=== PATIENT | male | born 1945 | race Caucasian/White ===

== ENCOUNTER 2021-02-19 12:07 | Day surgery (SDC) | payer MEDICARE, BC ==
[~2021-02-19] VITALS: Ht 172.7 cm; Wt 90.9 kg
[2021-02-19 12:44] LABS: CALC OSMOLALITY 284 mosm/kg (275-300); CALCIUM 9.3 mg/dL (8.5-10.1); CARBON DIOXIDE 29.3 mmol/L (21.0-32.0); CHLORIDE - SERUM 107 mmol/L (98-107); GLUCOSE 114 mg/dL (74-106); POTASSIUM - SERUM 4.1 mmol/L (3.5-5.1); SODIUM 143 mmol/L (136-145); UREA NITROGEN 11 mg/dL (7-18); eGFR NON AFRICAN AMERICAN 78 mL/min (90-120)
[2021-02-19 12:54] LABS: BASOPHILS 0.6 % (0-2); EOSINOPHILS 4.2 % (0-7); HEMOGLOBIN 11.7 g/dL (13.5-17.5); IMMATURE GRANULOCYTES 0.2 % (0-5); LYMPHOCYTE ABS# 1.58 10x3/uL (1.32-3.57); LYMPHOCYTES 31.2 % (15-50); MCHC 31.6 g/dL (31.0-37.0); MCV 97.9 fL (80.0-100.0); MEAN PLATELET VOLUME 9.7 fL (7.4-10.4); MONOCYTES 15.8 % (2-11); NEUTROPHIL ABS# 2.43 10x3/uL (1.78-5.38); RBC 3.78 10x6/uL (4.20-6.10); WBC 5.1 10x3/uL (4.8-10.8)
[2021-02-19 13:00] LABS: PLATELET COUNT 149 10x3/uL (130-400)
[2021-02-19] MEDS ORDERED: VASOTEC5 MG (13:31)
[2021-02-19] MEDS ORDERED: FER-IN-SOL DROP50 ML (13:31)
[2021-02-19] MEDS ORDERED: FUROSEMIDE20 MG (13:31)
[2021-02-19] MEDS ORDERED: ASPIRIN81 MG (13:32)
[2021-02-19] MEDS ORDERED: ASCORBIC ACID500 MG (13:32)
[2021-02-19] MEDS ORDERED: OMEPRAZOLE20 M1 (13:33)
[2021-02-19 13:36] VITALS: Ht 172.7 cm; Wt 90.9 kg
--- NOTE | 2021-02-19 15:43 | NUR ---
DISCHARGE INSTRUCTIONS GIVEN TO PATIENT AND , VERABLIZED UNDERSTANDING. PIV DC'D, CATHETER INTACT. PATIENT GETTING DRESSED WITH 'S ASSISTANCE. 1620 DR MARRUFO HAS SPOKEN WITH PT AND SPOUSE. DC'D PT VIA WC BY THIS NURSE TO POV WITH DRIVING. AND PATIENT HAD ALL BELONGINGS AND DC PACKET.
--- NOTE | 2021-02-20 14:41 | OP ---
PATIENT NAME: RADHA CROWLEY MEDICAL RECORD: [id number] :49 LOCATION:[facility] ADMISSION DATE: SURGEON: ODETTE MARRUFO MD DATE OF OPERATION: 02/19/2021 PROCEDURE: Colonoscopy. PREOPERATIVE DIAGNOSIS: History of polyps. Medication: Propofol per anesthesia. DESCRIPTION OF PROCEDURE: Colonoscopy was performed. The colonoscope was inserted through the rectum and advanced to the cecum, identified by the ileocecal valve and appendiceal orifice. The quality of the prep was good to fair. There were a few sigmoid diverticula visualized. The remainder of the exam was normal. The patient tolerated the procedure well. There were no immediate complications. FINAL DIAGNOSIS: Few sigmoid diverticula. Remainder of exam normal. PLAN: Advance diet. Return to GI office. Fiber supplements. TRANSINT:[id number] Voice Confirmation ID: [id number] DOCUMENT ID: [id number] ODETTE MARRUFO MD at 1441 CC: [id number] DICTATION DATE: 02/19/21 1509 UNIT AIDE: 02/19/21 1714 [facility] 02/19/21 [id number] [place] [address]
== END 2021-02-19 16:20 | disposition home or self-care (01) ==
LOC: D.OPS 12:07
PROVIDERS: ATTEND Internal Medicine Gastroenterology
DX: Z86.010 Personal history of colon polyps (principal); K57.30 Diverticulosis of large intestine without perforation or abscess without bleeding; Z12.11 Encounter for screening for malignant neoplasm of colon

== ENCOUNTER → 2021-03-13 08:08 | Outpatient (CLI) | payer MEDICARE, BC ==
[2021-02-19 13:36] VITALS: BMI 30.4
[~2021-03-13 08:08] MED LIST: ASCORBIC ACID500 MG; ASPIRIN81 MG; FER-IN-SOL DROP50 ML; FUROSEMIDE20 MG; OMEPRAZOLE20 M1; VASOTEC5 MG
== END | disposition home or self-care (01) ==
LOC: D.HCCARDIO 03-09 11:30
PROVIDERS: ATTEND Internal Medicine Cardiovascular Disease
DX: R06.02 Shortness of breath (principal)

== ENCOUNTER 2021-04-02 10:43 | Day surgery (SDC) | payer MEDICARE, BC ==
[~2021-04-02] VITALS: Ht 172.7 cm; Wt 94.5 kg
--- NOTE | ~2021-04-02 | HP ---
PATIENT: RADHA CROWLEY MEDICAL RECORD: [id number] ACCOUNT: [id number] LOCATION:[facility] : 47 ADMISSION DATE: 04/02/21 PCP: AFUA GARCIA DO HISTORY AND PHYSICAL EXAMINATION HISTORY OF PRESENT ILLNESS: A 75-year-old gentleman with no known history of coronary artery disease, presented with chest tightness, pressure with exertion in the office, typically found to have significant coronary disease via noninvasive studies. He is referred to manager labor delivery for further evaluation. PAST MEDICAL HISTORY: Includes; 1. History of hypertension. 2. Hyperlipidemia. ALLERGIES: PENICILLIN. PHYSICAL EXAMINATION: GENERAL: Pleasant, no acute distress. Appears stated age. HEENT: Normocephalic, atraumatic. NECK: No JVD or bruit. CARDIOVASCULAR: Regular. LUNGS: Suarez clear. ABDOMEN: Soft and nontender. EXTREMITIES: Pulses 2+ with no edema. IMPRESSION: Anginal symptomatology class 3 at this point with significant noninvasive findings. PLAN: Angiography, intervention based on the above. TRANSINT:[id number] Voice Confirmation ID: [id number] DOCUMENT ID: [id number] NIRU THOMPSON MD CC: [id number] DICTATION DATE: 04/02/21 1407 CAN PILER: 04/02/21 1508 [facility] [address] [place] [address]
--- NOTE | ~2021-04-02 | OP ---
PATIENT NAME: RADHA CROWLEY MEDICAL RECORD: [id number] :49 LOCATION:[facility] ADMISSION DATE: SURGEON: NIRU THOMPSON MD DATE OF OPERATION: 04/02/2021 PROCEDURE: Left heart catheterization, selective coronary angiography plus IFR wire to the LAD plus stenting to the LAD, right femoral artery approach. CATHETERS: A 5-Nigerien sheath, 5/4 left and right Axel, 5/4 pig. The procedure was well tolerated. The patient was returned to the [place]. Sheath removed. ExoSeal device was placed. FINDINGS: Left ventriculography in 30-degree MCCAIN view: Normal wall motion, normal systolic function. CORONARY ANATOMY: Left main: Left main is free of disease. LAD: Has about 80% stenosis in its mid portion. This confirmed via IFR wire, less than 0.9. CIRCUMFLEX: Free of disease. Right coronary artery: Free of disease. IMPRESSION: Significant stenosis of the LAD via IFR and angiographically. PLAN: Intervention momentarily. DESCRIPTION: A 5-Nigerien sheath was exchanged for a 6-Nigerien sheath. A XB LAD guiding catheter provided guide catheter support followed by the indwelling optimal wire. Stent deployed was a 3.5 x 14 up to 14 atmospheres. Final angiography shows excellent resolution of 80% stenosis. No significant residual. EDILBERTO flow was 3 throughout the procedure. Heparin and Integrilin were used during the case. Plavix loaded in the lab. Sheath closed with ExoSeal device. TRANSINT:[id number] Voice Confirmation ID: [id number] DOCUMENT ID: [id number] NIRU THOMPSON MD CC: [id number] DICTATION DATE: 04/02/21 1503 [employer] BUS DRIVER: 04/02/21 1756 [facility] [address] [place] [id number]
--- NOTE | ~2021-04-02 | HEMODYNAMI ---
PATIENT:RADHA CROWLEY MEDICAL RECORD: [id number] : 49 LOCATION:[facility] ADMISSION DATE: 04/02/21 Generatedon:114:55 Patient name: RADHA CROWLEY Patient #: [id number] SSN: [id number] : 1945 Date of study: 04/02/2021 Page: Of Hemodynamic Procedure Report Patient Data Patient Demographics Procedure consent was obtained First Name: RADHA Gender: Male Last Name: KEO : 1945 Middle Initial: A Age: 75 year(s) Patient #: [id number] Race: SSN: [id number] Additional ID: [id number] Contact details Address: [address] [place] [address] State: [place] City: [place] Zip code: [address] Past Medical History Performed procedures and imaging results Date Procedure Procedure Results Comments 03/13/2021 Stress testing Positive->Intermediate with SPECT MPI risk Allergies Allergen Reaction Date Comments Reported Other allergy 04/02/2021 PCN Other allergy 04/02/2021 PCN Admission Admission Data Admission Date: 04/02/2021 Admission Time: 10:43 Admit Source: Other Lab Results Lab Result Date: 04/02/2021 Lab Result Time: 0:00 Biochemistry Name Units Result Min Max BUN mg/dl 15 --(--*-)-- 7 18 Creatinine mg/dl 1.1 --(--*-)-- 0.6 1.3 eGFR ml/min 70.17958 *-(----)-- 90 120 NONAFRICAN CBC Name Units Result Min Max Hematocrit % 37.6 *-(----)-- 42 54 Hemoglobin g/dl 12.9 -*(----)-- 13.5 17.5 Procedure Procedure Types Cath Procedure Diagnostic Procedure C LH w/Coronaries FFR/IVUS FFR Initial Sedation Charges Moderate Sedation 25-39 minutes PCI Procedure Coronary Stent Coronary Stent Initial Hemochron ACT Test Procedure Description Procedure Date Procedure Date: 04/02/2021 Procedure Start Time: 14:26 Procedure End Time: 14:51 Procedure Staff Name Function Kin Reyna MD Performing Physician Cindi Hernández RN Nurse Lai Estrada RN Nurse Kamini Hong RT Scrub Arielle Klein RT Monitor Procedure Data Cath Procedure Fluoroscopy Diagnostic fluoroscopy Total fluoroscopy Time: 5.5 time: 5.5 min min Diagnostic fluoroscopy Total fluoroscopy dose: 563 dose: 563 mGy mGy Contrast Material Contrast Material Type Amount (ml) Isovue 300 143 Entry Location Entry Primary Successful Side Size Upsize Upsize Entry Closure Succes sful Closure Location (Fr) 1 (Fr) 2 (Fr) Remarks Device Remarks Femoral Right 5 Fr 6 Fr Exoseal artery Short Estimated blood loss: 5 ml Diagnostic catheters Device Type Used For End Catheter Placement MULTIPACK JL 4.0 5Fr Left Coronary catheter Angiography MULTIPACK 3DRC 5Fr Right Coronary catheter Angiography MULTIPACK Pigtail 5 Fr LV Angiography catheter MULTIPACK JL 4.0 5Fr Pressure catheter Measurement Procedure Complications No complications Procedure Medications Medication Administration Route Dosage Oxygen etCO2 Nasal cannula 2 l/min Lidocaine 2% added to field 20 Heparin Flush Bag added to field 2 bags (1000units/500ml NS) 0.9% NaCl I.V. 100 ml/hr Versed I.V. 1 mg Fentanyl I.V. 50 mcg Versed I.V. 1 mg Fentanyl I.V. 50 mcg Heparin Bolus I.V. 2000 units Heparin Bolus I.V. 3000 units Integrilin (Bolus I.V. 8.5 ml 2mg/ml) Plavix P.O. 600 mg Hemodynamics Rest HGB: 12.9 (g/dl) Heart Rate: 69 (bpm) Pressure Samples Time Site Value (mmHg) Purpose Heart Use Rate(bpm) 14:32 LV 69/-6,0 Snapshot 80 14:32 AO 110/59(82) Pullback 83 14:32 LV 11/5,10 Pullback 83 Gradients Valve Time Site 1 Site 2 Mean SEP/DFP Peak To Heart Use (mmHg) (sec/min) Peak Rate (mmHg) (bpm) Aortic 14:32 LV AO 0 21 0 83 11/5,10 110/59(82) Calculations Valve P-P Mean Valve Index Valve Source Name Gradient Area Flow (cm2) Aortic 0 0 0 0 Snapshots Pre Cath Intra NCS Post Cath Vital Signs Time Heart Resp SPO2 etCO2 NIBP Rhythm Pain Sedation Rate (ipm) (%) (mmHg) (mmHg) Status Level (bpm) 14:02:40 61 14 100 28.7 114/65(86) NSR 0 (11) 10(A) , No pain 14:06:58 64 12 100 17.4 115/64(86) NSR 0 (11) 10(A) , No pain 14:11:16 68 11 100 31 120/60(91) NSR 0 (11) 10(A) , No pain 14:15:32 68 10 100 24.9 116/57(88) NSR 0 (11) 10(A) , No pain 14:19:48 69 12 100 14.4 116/60(80) NSR 0 (11) 9(A) , No pain 14:24:04 69 11 100 12.8 109/56(87) NSR 0 (11) 9(A) , No pain 14:28:18 70 10 100 15.9 112/58(87) NSR 0 (11) 9(A) , No pain 14:32:34 79 10 100 12.1 110/62(88) NSR 0 (11) 9(A) , No pain 14:36:52 68 11 100 5.3 115/58(88) NSR 0 (11) 9(A) , No pain 14:41:11 86 11 100 5.3 116/61(93) NSR 0 (11) 9(A) , No pain 14:45:31 82 10 100 26.5 106/57(87) NSR 0 (11) 10(A) , No pain 14:49:43 81 11 100 31.8 120/68(85) NSR 0 (11) 10(A) , No pain Medications Time Medication Route Dose Verified Delivered Reason Notes Effectiveness by by 14:03:09 Oxygen etCO2 2 Kin Puente used for Nasal l/min 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 100 Kin Puente Per physician ml/hr St Andrea Hernández RN, MD 14:10:02 Versed I.V. 1 mg Kin Puente for sedation St Andrea Hernández RN, MD 14:10:08 Fentanyl I.V. 50 Kin Rosaie for sedation mcg St Andrea Hernández RN, MD 14:21:00 Versed I.V. 1 mg Kin Puente for sedation St Andrea Hernández RN, MD 14:21:04 Fentanyl I.V. 50 Kin Puente for sedation mcg St Andrea Hernández RN, MD 14:39:58 Heparin Bolus I.V. 2000 Kin Puente for verif ied units St Andrea Hernández RN anticoagulation with dr MD echavarria 14:43:22 Heparin Bolus I.V. 3000 Kin Puente for verif ied units St Andrea Hernández RN anticoagulation with dr MD echavarria 14:43:34 Integrilin I.V. 8.5 Kin Rosaie for Waste d (Bolus 2mg/ml) ml St Andrea Hernández RN antiplatelet 1.5 ml MD therapy of vial 14:51:15 Plavix P.O. 600 Kin Puente for mg St Andrea Hernández RN antiplatelet therapy Procedure Log Time Note 12:52:37 Informed consent obtained and on chart 12:52:55 Diagnostic Cath Status : Elective 12:53:31 Admit Source: Other 12:53:36 ACC Patient presents with Stable Angina CCS Anginal Class 2--Slight limitation of ordinary activity. 12:53:41 Procedure Status Elective Heart Cath (OP). 12:53:43 Time tracking: Regular hours (M-F 7:00 - 5:00) 12:53:48 Plan of Care:Hemodynamics will remain stable., Cardiac rhythm will remain stable., Comfort level will be maintained., Respiratory function will remain adequate., Patient/ family verbilizes understanding of procedure., Procedure tolerated without complication., Recovers from procedure without complications.. 12:53:59 Family in waiting room. 12:54:00 Patient NPO since Midnight. 12:55:11 Lab Result : Hemoglobin 12.9 g/dl 12:55:11 Lab Result : eGFR NONAFRICAN 70.04320 ml/min 12:55:11 Lab Result : BUN 15 mg/dl 12:55:11 Lab Result : Creatinine 1.1 mg/dl 12:55:11 Lab Result : Hematocrit 37.6 % 12:55:34 Lab results completed and on chart. 12:55:51 Stress Test: yes; abnormal INFERIOR 12:55:53 Alarms reviewed by R. N. 12:55:54 Sharps counted by scrub and verified by R.N. 13:01:55 Risk of Mortality: 0.1 13:01:57 Risk of blood transfusion: 0.3 13:02:01 Risk of SOPHIE: 1.2 13:43:21 Cindi Hernández RN sent for patient. Start room use. 13:49:00 Patient allergic to Other allergyPCN 13:53:44 Patient received from Pre/Post Procedure Room to CCL 1 Alert and oriented. Tansferred to table in Supine position. 13:53:45 Warm blankets applied, and carolina hugger turned on for patient comfort. 13:53:46 Correct patient and procedure confirmed by team. 13:53:46 ECG and BP/O2 sat monitors applied to patient. 13:53:47 Full Disclosure recording started 13:53:48 Pre-procedure instructions explained to patient. 13:53:49 Pre-op teaching completed and patient verbalized understanding. 13:53:58 Patient allergic to Other allergyPCN 13:54:05 Is the patient allergic to Iodine/contrast media? No. 13:54:06 Was the patient premedicated? Yes 13:54:12 Is patient on blood thinner?No 13:54:13 Patient diabetic? No. 13:57:29 Vital chart was started 13:57:30 Baseline sample Acquired. 14:03:09 Oxygen 2 l/min etCO2 Nasal cannula was administered by Cindi Hernández RN; used for procedure; Verbal order read back and verified. 14:03:17 Lidocaine 2% 20ml vial added to field was administered by Kin Reyna MD; for local anesthetic; Verbal order read back and verified. 14:03:23 Heparin Flush Bag (1000units/500ml NS) 2 bags added to field was administered by Kin Reyna MD; used for procedure; Verbal order read back and verified. 14:03:33 0.9% NaCl 100 ml/hr I.V. was administered by Cindi Hernández RN; Per physician; Verbal order read back and verified. 14:05:19 Baseline sample Acquired. 14:05:44 Rhythm: sinus rhythm 14:05:49 Previous problem with sedation/anesthesia? No ? 14:05:51 Snore? No 14:05:51 Sleep apnea? No 14:05:52 Deviated septum? No 14:05:53 Opens mouth fully? Yes 14:05:53 Sticks out tongue? Yes 14:05:57 Airway obstruction? No ? 14:05:59 Dentures? No ? 14:06:04 Pre procedure: right dorsailis pedis pulse 2+ Normal; easily identifiable; not easily obliterated 14:06:07 Pre procedure: left dorsailis pedis pulse 2+ Normal; easily identifiable; not easily obliterated 14:06:16 Patient pain scale 0/10 ?. 14:06:25 IV patent on arrival in left forearm with 0.9% NaCl at [facility]. 14:06:32 Physician arrived 14:06:33 --------ALL STOP TIME OUT------ 14:06:33 Final Timeout: patient, procedure, and site verified with staff and physician. All members of the team are in agreement. 14:06:39 Right groin site verified by team. 14:06:43 Fire Safety Assessment: A--An alcohol-based skin anteseptic being used preoperatively., C--Open oxygen or nitrous oxide is being used., D--An ESU, laser, or fiber-optic light is being used. 14:06:47 Physical assessment completed. ASA score P 2 - A patient with mild systemic disease as per Kin Reyna MD. 14:06:51 Sedation plan: IV Moderate Sedation Medication:Versed, Fentanyl 14:07:20 2) 60-89 Mildly reduced kidney function, and other findings (as for stage 1) point to kidney disease. 14:08:04 Maximum allowable contrast dose (3.7 X eGFR X 0.75)194 ml. 14:08:38 Use device set Femoral Dx 14:08:39 ACIST Syringe (97500) opened to sterile field. 14:08:39 Bag Decanter (2002) opened to sterile field. 14:08:40 Medline Cath Pack ([id number]) opened to sterile field. 14:08:41 ACIST Hand Control (76423) opened to sterile field. 14:08:41 ACIST Manifold (94810) opened to sterile field. 14:08:42 DIAGNOSTIC Multipack 5Fr catheter set ([id number]) opened to sterile field. 14:08:42 Tegaderm 4 x 4 (1626W) opened to sterile field. 14:08:44 SHEATH 5FR [place] (WOI061) opened to sterile field. 14:08:44 EMERALD Guide Wire (679-346) opened to sterile field. 14:10:02 Versed 1 mg I.V. was administered by Cindi Hernández RN; for sedation; Verbal order read back and verified. 14:10:08 Fentanyl 50 mcg I.V. was administered by Cindi Hernnádez RN; for sedation; Verbal order read back and verified. 14:21:00 Versed 1 mg I.V. was administered by Cindi Hernández RN; for sedation; Verbal order read back and verified. 14:21:04 Fentanyl 50 mcg I.V. was administered by Cindi Hernández RN; for sedation; Verbal order read back and verified. 14:25:18 Procedure started. 14:26:21 Local anesthetic to right femoral artery with Lidocaine 2% by Kin Reyna MD.INITIAL ACCESS ONLY 14:26:33 A 5 Fr sheath was inserted into the Right Femoral artery 14:27:47 A MULTIPACK JL 4.0 5Fr catheter was advanced over the wire and used for Left Coronary Angiography. 14:28:04 LCA angiography performed. 14:28:07 Injector settings: Ml/sec: 3, Volume: 6, 14:29:04 Catheter removed. 14:29:10 A MULTIPACK 3DRC 5Fr catheter was advanced over the wire and used for Right Coronary Angiography. 14:29:42 [place] OmniWire (12182) opened to sterile field. 14:29:42 INFLATOR Merit BasixCompak (BW7260) opened to sterile field. 14:29:50 RCA angiography performed. 14:30:33 Injector settings: Ml/sec: 3, Volume: 6, 14:30:56 Catheter removed. 14:31:02 A MULTIPACK Pigtail 5 Fr catheter was advanced over the wire and used for LV Angiography. 14:32:25 LV hemodynamics recorded. 14:32:27 LV gram done using MCCAIN 14:32:35 EF : 55 % 14:32:45 Catheter removed. 14:33:06 A MULTIPACK JL 4.0 5Fr catheter was advanced over the wire and used for Pressure Measurement. 14:33:19 Pressure wire advanced. 14:33:22 Baseline FFR 1. 14:39:58 Heparin Bolus 2000 units I.V. was administered by Cindi Hernández RN; for anticoagulation; verified with dr echavarria Verbal order read back and verified. 14:40:35 Wire advanced across lesion. 14:40:48 pLAD lesion measured at 0.87 with IFR 14:41:02 SHEATH 6FR [place] (OZY458) opened to sterile field. 14:41:03 GUIDE 6FR XBLAD 3.5 catheter ([id number]) opened to sterile field. 14:41:12 Wire removed. 14:41:19 Catheter removed. 14:41:21 Proceeding to intervention. 14:41:24 ACC Pre-intervention EDILBERTO Flow is 3. 14:41:31 Pre PCI Site: [place] pLAD has 80% stenosis. 14:42:13 Sheath upsized to a 6 Fr Short. 14:42:51 6 Fr XBLAD 3.5 guide catheter was inserted over the wire 14:42:55 OMNI wire advanced. 14:43:22 Heparin Bolus 3000 units I.V. was administered by Cindi Hernández RN; for anticoagulation; verified with dr echavarria Verbal order read back and verified. 14:43:34 Integrilin (Bolus 2mg/ml) 8.5 ml I.V. was administered by Cindi Hernández RN; for antiplatelet therapy; Wasted 1.5 ml of vial Verbal order read back and verified. 14:44:17 Wire advanced across lesion. 14:47:49 Place stent Inflation Number: 1 A TORI RX 3.0 x 12 stent ([id number]) was prepped and advanced across the Prox LAD 80. The stent was deployed at 14 LIU for 0:30 (min:sec) 0. 14:48:32 EXOSEAL 6Fr (EX600) opened to sterile field. 14:49:09 Stent catheter was removed intact over wire. 14:49:10 Wire removed. 14:49:11 Guide catheter removed. 14:49:18 Sheath removed intact; hemostasis achieved with Exoseal to the Right Femoral artery. 14:49:20 Procedure ended.(Physican Out) 14:49:36 Fluoroscopy time 05.50 minutes. 14:49:40 Fluoroscopy dose: 563 mGy 14:49:40 Flurop Dose total: 563 14:49:50 Dose Area Product 12643 mGy/cm. 14:49:54 Contrast amount:Isovue 300 143ml. 14:49:57 Maximum allowable dose exceeded? No. 14:49:57 Sharps counted by scrub and verified by R.N. 14:50:01 Insertion/operative site no bleeding no hematoma. 14:50:06 Post-op/insertion site Right Femoral artery dressed using a 4 x 4 and Tegaderm. 14:50:11 Post right femoral artery:stable 14:50:13 Post Procedure Pulses reassessed and unchanged 14:50:17 Post procedure rhythm: unchanged. 14:50:20 Estimated blood loss: 5 ml 14:50:22 Post procedure instruction explained to patient.Patient verbalizes understanding. 14:50:22 Patient needs reinforcement of post procedure teaching. 14:51:15 Plavix 600 mg P.O. was administered by Cindi Hernández RN; for antiplatelet therapy; Verbal order read back and verified. 14:51:15 Procedure type changed to Cath procedure, Diagnostic procedure, LHC, [facility] w/Coronaries, FFR/IVUS, FFR Initial, Sedation Charges, Moderate Sedation 25-39 minutes, PCI procedure, Coronary Stent, Coronary Stent Initial, Hemochron ACT Test 14:51:16 Procedure and supply charges have been captured, reviewed, submitted and are correct. 14:51:21 Procedure Complication : No complications 14:51:23 Vital chart was stopped 14:51:26 [facility] Findings: MVD- PCI performed (see procedure note) 14:51:29 Operative report dictated upon procedure completion. 14:51:30 See physician's report for complete and final results. 14:51:33 Report given to Pre/Post Procedure Room. 14:51:36 Patient transfered to Pre/Post Procedure Room with Stretcher. 14:51:38 Procedure ended. 14:51:38 Full Disclosure recording stopped 14:51:45 ACC-PCI Only Patient was given prescriptions, or instructed by Kin Reyna MD to start/continue the following medications upon discharge: Plavix 14:51:47 End room use (Document Last) 14:54:26 ACT drawn and resulted at 270 seconds. (normal therapeutic range 180-240 seconds). 14:54:34 End room use (Document Last) 14:55:06 End room use (Document Last) Intervention Summary Intervention Notes Time ActionType Lesion and Equipment Used Action# Pressure Duration Attributes 14:47:[address] Place stent Prox LAD TORI RX 3.0 x 1 14 00:30 12 stent ([id number]) Device Usage Item Name Manufacture Quantity Catalog Hospital Part [facility] Lot# / Number Charge Number Stock Stock Serial# Code ACIST Syringe Acist 1 31134 865703 846952 [id number] 20 (42486) [employer] Systems Inc Bag Decanter Microtek 1 721923 06254 681089 5 () Medical Inc. Medline Cath Medline 1 [id number] 644294 60392 989574 5 Pack ([id number]) ACIST Hand Acist 1 99472 836977 093129 208040 5 Control Medical (02790) Systems Inc ACIST Manifold Acist 1 67285 082235 446125 324747 5 (00293) Medical Systems Inc DIAGNOSTIC Cardinal 1 DL7451 391994 69599 907738 30 Multipack 5Fr Health catheter set ([id number]) Tegaderm 4 x 4 3M 1 1626W 770792 682452 561020 5 (1626W) SHEATH 5FR Terumo 1 WHD803 085946 504569 601281 5 [place] (SKQ249) EMERALD Guide Cardinal 1 502-455 194950 091037 092515 5 Wire (502-455) Health MULTIPACK JL Cardinal 1 661389 5 4.0 5Fr Health catheter MULTIPACK 3DRC Cardinal 1 202442 5 5Fr catheter Health [place] Cum[place] 1 [id number] 858847 91268 9943 5 OmniWire (98500) INFLATOR Merit Merit 1 [id number] 651797 718690 649760 15 [facility] Medical (CY6030) MULTIPACK Cardinal 1 969256 5 Pigtail 5 Fr Health catheter SHEATH 6FR Terumo 1 [id number] 853269 216643 288828 40 [place] (IIP619) GUIDE 6FR Cardinal 1 [id number] 062595 073907 426273 10 XBLAD 3.5 Health catheter ([id number]) TORI RX 3.0 x Medtronic 1 [id number] 798990 6862876 408591 5 [id number] 12 stent ([id number]) EXOSEAL 6Fr Cardinal 1 EX600 198805 565381 051126 10 (EX600) Health Signature Audit [place] Stage Time Signature Unsigned Intra-Procedure 04/02/2021 Arielle Klein 2:54:34 PM RT(R) Intra-Procedure 04/02/2021 Cindi Hernández RN 2:55:06 PM Intra-Procedure 04/02/2021 Kin Burgos 2:55:32 PM Andrea HOOPER [address] [place] [address]
[2021-04-02] MEDS ORDERED: ALDACTONE25 MG PO (11:00)
[2021-04-02 11:14] VITALS: BP 112/44; Ht 172.7 cm; Wt 94.5 kg
[2021-04-02 11:27] LABS: BASOPHILS 0.4 % (0-2); EOSINOPHILS 7.1 % (0-7); HEMATOCRIT 37.6 % (42.0-54.0); HEMOGLOBIN 12.9 g/dL (13.5-17.5); IMMATURE GRANULOCYTES 0.1 % (0-5); LYMPHOCYTE ABS# 2.14 10x3/uL (1.32-3.57); LYMPHOCYTES 31.5 % (15-50); MCH 34.7 pg (26.0-34.0); MCHC 34.3 g/dL (31.0-37.0); MCV 101.1 fL (80.0-100.0); MEAN PLATELET VOLUME 9.9 fL (7.4-10.4); MONOCYTES 15.1 % (2-11); NEUTROPHIL ABS# 3.11 10x3/uL (1.78-5.38); NEUTROPHILS 45.8 % (40-80); PLATELET COUNT 137 10x3/uL (130-400); RBC 3.72 10x6/uL (4.20-6.10); RDW 17.8 % (11.5-14.5); WBC 6.8 10x3/uL (4.8-10.8)
[2021-04-02 11:44] LABS: ANION GAP 9.5 mmol/L (8-16); CALCIUM 9.2 mg/dL (8.5-10.1); CARBON DIOXIDE 26.7 mmol/L (21.0-32.0); CHOL - HDL RATIO 3.6 ratio (2.3-4.9); CREATININE - SERUM 1.1 mg/dL (0.6-1.3); LDL-HDL RATIO 2.4 ratio (1.5-3.5); POTASSIUM - SERUM 4.2 mmol/L (3.5-5.1)
--- NOTE | 2021-04-02 15:09 | NUR ---
PT ARRIVED BY STRETCHER. PLACED ON MONITORS. ASSESSMENT COMPLETED. VSS AT THIS TIME. CALL LIGHT WITHIN REACH. FAMILY AT BEDSIDE. DR. THOMPSON ROUNDED AND SPOKE WITH PT AND PT'S FAMILY. PT HAS CHRONIC BACK PAIN AND HIS ASKED IF HE COULD HAVE SOMETHING FOR HIS PAIN. ORDERS RECEIVED.
[2021-04-02] MEDS ORDERED: PLAVIX75 MG PO (15:13)
[2021-04-02] MEDS ORDERED: PRAVASTATIN SOD10 MG PO (15:16)
--- NOTE | 2021-04-02 15:25 | NUR ---
RIGHT GROIN DRESSING C/D/I. NO S/S OF HEMATOMA NOTED. RIGHT PEDAL PULSE PALPABLE. VSS AT THIS TIME. CALL LIGHT WITHIN REACH. FAMILY AT BEDSIDE.
--- NOTE | 2021-04-02 15:55 | NUR ---
PT STILL UNCOMFORTABLE LAYING FLAT. RIGHT GROIN DRESSING C/D/I. NO S/S OF HEMATOMA NOTED. RIGHT PEDAL PULSE PALPABLE. FAMILY AT BEDSIDE. PT'S HELPING PT BY REPOSITIONING HIS RIGHT ARM FOR COMFORT. VSS AT THIS TIME.
--- NOTE | 2021-04-02 16:14 | NUR ---
PT REPOSITIONED IN BED TO TRY AND MAKE MORE COMFORTABLY. VSS. RIGHT GROIN DRESSING C/D/I. NO S/S OF HEMATOMA NOTED. RIGHT PEDAL PULSE PALPABLE.
--- NOTE | 2021-04-02 16:45 | NUR ---
RIGHT GROIN DRESSING C/D/I. NO S/S OF HEMATOMA NOTED. PT VOIDED IN URINAL. 250cc OF CLEAR YELLOW URINE NOTED. PT RESTING. PT CONTINUES TO COMPLAIN OF BEING UNCOMFORTABLE. ATTEMPTING TO REPOSITION PILLOW AND KNEES TO HELP WITH MAKING HIM MORE COMFORTABLE.
--- NOTE | 2021-04-02 17:16 | NUR ---
RIGHT GROIN DRESSING C/D/I. NO S/S OF HEMATOMA NOTED. PILLOW PLACED UNDER PT'S RIGHT SHOULDER FOR COMFORT. PLACED KNEE ROLL UNDER RIGHT LEG. STILL ATTEMPTING TO MAKE PT MORE COMFORTABLE.
--- NOTE | 2021-04-02 17:43 | NUR ---
RIGHT GROIN DRESSING C/D/I. NO S/S OF HEMATOMA NOTED. RIGHT PEDAL PULSE PALPABLE. PT'S HEAD OF BED INC TO 30 DEGREES. TOLERATED WELL. SET UP WITH A DRINK. HE DENIES NAUSEA. PT DOES NOT WANT A SANDWICH AT THIS TIME. PT'S WENT TO [employer] ANALYST HIS PLAVIX AND STATIN RX.
--- NOTE | 2021-04-02 18:20 | NUR ---
RIGHT GROIN DRESSING C/D/I. NO S/S OF HEMATOMA NOTED. PIV D/C'D WITH CATH TIP INTACT. TOLERATED WELL. DISCUSSED DISCHARGE INSTRUCTIONS WITH PT AND PT'S . THEY VOICED UNDERSTANDING. TO ASSIST GETTING HIM DRESSED. CALL LIGHT LEFT WITHIN REACH.
--- NOTE | 2021-04-02 18:45 | NUR ---
RIGHT GROIN DRESSING C/D/I. NO S/S OF HEMATOMA NOTED. PT UP TO WHEELCHAIR WITH ASSIST. TAKEN OUT TO VEHICLE BY WHEELCHAIR. NO S/S OF DISTRESS NOTED. ALL BELONGINGS AND PAPERWORK IN HAND. PT ASSISTED INTO CAR.
== END 2021-04-02 18:45 | disposition home or self-care (01) ==
LOC: D.CATH 10:43
PROVIDERS: ATTEND Internal Medicine Interventional Cardiology
DX: I20.9 Angina pectoris, unspecified (principal); R94.39 Abnormal result of other cardiovascular function study; I49.9 Cardiac arrhythmia, unspecified; I10 Essential (primary) hypertension; R60.9 Edema, unspecified; E78.5 Hyperlipidemia, unspecified
CPT/HCPCS: 93458; 93571; C9600